=== PATIENT | female | born 1995 | race Two or more races ===

== ENCOUNTER 2022-04-27 22:07 | Emergency (ER) | payer OTHER ==
[~2022-04-27] VITALS: Ht 157.5 cm; Wt 91.2 kg
[2022-04-27] MEDS ORDERED: ALBUTEROL (22:26)
== END 2022-04-28 04:36 ==
LOC: ER 22:07
DX: J98.01 Acute bronchospasm (principal)

== ENCOUNTER 2022-08-23 23:05 | Emergency (ER) | payer OTHER ==
[~2022-08-23] VITALS: Ht 157.5 cm; Wt 95.7 kg
[~2022-08-23 23:05] MED LIST: ALBUTEROL
[2022-08-23] MEDS ORDERED: IRON325 MG PO (23:22)
[2022-08-23] MEDS ORDERED: PNEU16DI2 IJ (23:23)
== END 2022-08-24 01:32 | disposition home or self-care (01) ==
LOC: ER 23:05
DX: M94.0 Chondrocostal junction syndrome [Tietze] (principal)

== ENCOUNTER → 2025-01-23 | Emergency (ER) | payer OTHER ==
[~2025-01-23] VITALS: Ht 157.5 cm; Wt 95.3 kg
[~2025-01-23] MED LIST changes: +IRON325 MG PO; +MEDROLPACK PO; +PNEU16DI2 IJ; +ZITHROMAX500 MG PO
[2025-01-23 20:00] LABS: COVID-19 AG NEGATIVE (NEGATIVE)
[2025-01-23 20:05] LABS: INFLUENZA A AG NEGATIVE (NEGATIVE); INFLUENZA B AG NEGATIVE (NEGATIVE)
== END | disposition home or self-care (01) ==
LOC: ER 18:07
PROVIDERS: General Practice
DX: J06.9 Acute upper respiratory infection, unspecified (principal); Z20.822 Contact with and (suspected) exposure to COVID-19

== ENCOUNTER → 2025-04-18 | Emergency (ER) | payer OTHER ==
[~2025-04-18] VITALS: Ht 157.5 cm; Wt 98.4 kg
== END | disposition left against medical advice (07) ==
LOC: ER 12:41
DX: Z53.21 Procedure and treatment not carried out due to patient leaving prior to being seen by health care provider (principal)